=== PATIENT | female | born 1975 | race Caucasian/White ===

== ENCOUNTER 2018-12-20 20:26 | Emergency (ER) | payer BC ==
[2018-12-20 20:40] VITALS: BP 109/53
[2018-12-20] MEDS ORDERED: Diphtheria,Pertussis(Acell),Tetanus Vaccine 0.5 ML Syringe IM ONE (20:52)
--- NOTE | 2018-12-20 20:54 | EDM.PDOC ---
ED HPI GENERAL MEDICAL PROBLEM - General Chief Complaint: Bite:Animal, Insect Stated Complaint: DOG BITE L HAND Time Seen by Provider: 12/20/18 20:35 Source of Information: Reports: Patient History Limitations: Reports: No Limitations - History of Present Illness INITIAL COMMENTS - FREE TEXT/NARRATIVE: 43-year-old female presents for evaluation and treatment of a dog bite to the left wrist. Patient states she was trying to separate 2 dogs fighting, her sons and her own dog. She reports that she has a chihuahua and her son has a shitzu- Terrior. She was bitten by the ginu-terrior. She reports both dogs are up to date on their rabies vaccines. She is unsure what her tetanus status is. She is reporting some minor discomfort and states that she vomited 3 times after this occurred. At about 30 minutes prior to arrival in the ER. Patient initially had numbness and tingling into her hands but this has now resolved. Location: Reports: Lower Extremity, Left Treatments ASTROCHEMIST: Reports: Other (see below) Other Treatments ASTROCHEMIST: washed with soap and water Left Lower Arm Pain Score (Numeric/FACES): 1 - Related Data Allergies Allergy/AdvReac Type Severity Reaction Status Date / Time No Known Allergies Allergy Verified 04/12/16 19:45 Home Meds: Home Meds Amoxicillin/Clavulanate K [Augmentin 875-125 MG] 1 tab PO BID #20 tablet [Rx] Past Medical History - Past Health History Medical/Surgical History: Denies Medical/Surgical History Respiratory History: Reports: PE - Past Surgical History GI Surgical History: Reports: Cholecystectomy Social & Family History - Tobacco Use Smoking Status *Q: Never Smoker - Caffeine Use Caffeine Use: Reports: Coffee - Recreational Drug Use Recreational Drug Use: No ED ROS GENERAL - Review of Systems Review Of Systems: See Below GI/Abdominal: Reports: Vomiting (x3 ASTROCHEMIST) Skin: Reports: Wound (left ventral wrist) Neurological: Reports: Numbness (bilateral arms ASTROCHEMIST), Tingling (bilateral arms, ASTROCHEMIST now resolved) ED EXAM, ANIMAL BITE - Physical Exam Exam: See Below Exam Limited By: No Limitations General Appearance: Alert, WD/WN, No Apparent Distress Respiratory/Chest: No Respiratory Distress Cardiovascular: Normal Peripheral Pulses Peripheral Pulses: 3+: Radial (L) Extremities: Normal Inspection (no obvious deformities), Normal Capillary Refill Neurological: Alert, Oriented, Normal Cognition Psychiatric: Normal Affect, Normal Mood Skin Exam: Normal Color, Warm/Dry, Other (approximately 3cm superficial scratch and a 1cm superficial punture wound to the left ventral distal forearm) Course - Vital Signs Last Recorded V/S: Last Vital Signs Temp 96.2 F 12/20/18 20:37 Pulse 63 12/20/18 20:37 Resp 20 12/20/18 20:37 BP 109/53 L 12/20/18 20:37 Pulse Ox 98 12/20/18 20:37 - Orders/Labs/Meds Orders: Active Orders 24 hr Category Date Time Status Vaccines to be Administered [RC] PER UNIT ROUTINE Care 12/20/18 20:52 Active Meds: Medications Discontinued Medications Generic Name Dose Route Start Last Admin Trade Name Simran PRN Reason Stop Dose Admin Diphtheria/Tetanus/Acell Pertussis 0.5 ml 12/20/18 20:52 12/20/18 20:58 Adacel IM 12/20/18 20:53 0.5 ml .ONCE ONE Administration Departure - Departure Time of Disposition: 20:52 Disposition: Home, Self-Care 01 Condition: Good Clinical Impression: Dog bite - Discharge Information *PRESCRIPTION DRUG MONITORING PROGRAM REVIEWED*: No *COPY OF PRESCRIPTION DRUG MONITORING REPORT IN PATIENT GRACE: No Prescriptions: Amoxicillin/Clavulanate K [Augmentin 875-125 MG] 1 tab PO BID #20 tablet Instructions: Animal Bite, Adult, [id number] Referrals: PCP,None [Primary Care Provider] - Forms: ED Department Discharge Additional Instructions: Take the Augmentin as prescribed. 1 tab twice a day for 10 days. Take with food. Recommend yogurt or probiotics to reduce side effects of upset stomach, nausea and diarrhea. Wash the wound gentle soap and water twice a day. Monitor for signs of infection such as increased swelling, pus or redness. Presents to clinic or the ER should these develop. Follow-up with your primary care provider as needed. Masy-luw-kkmddnu Tylenol or Motrin as needed for pain. your tetanus was updated in the ER tara, this is good for the next 10 years. Please return to the ER for symptoms change or worsen. - My Orders Last 24 Hours: My Active Orders 12/20/18 20:52 Vaccines to be Administered [RC] PER UNIT ROUTINE - Assessment/Plan Last 24 Hours: My Active Orders 12/20/18 20:52 Vaccines to be Administered [RC] PER UNIT ROUTINE
== END 2018-12-20 21:05 | disposition home or self-care (01) ==
LOC: JD.ED 20:26
DX: S60.872A Other superficial bite of left wrist, initial encounter (principal); W54.0XXA Bitten by dog, initial encounter; Z23 Encounter for immunization
CPT/HCPCS: 90471; 90700; 99283

== ENCOUNTER 2020-01-11 07:02 | Emergency (ER) | payer BC ==
[2020-01-11 07:15] VITALS: PULSE 112
[2020-01-11] MEDS ORDERED: Dextrose 5%-0.9% NaCl 1,000 ML IV SCH (07:30)
--- NOTE | 2020-01-11 07:30 | EDM.PDOC ---
ED HPI GENERAL MEDICAL PROBLEM - General Chief Complaint: Headache Stated Complaint: HEADACHE AND DIZZY Time Seen by Provider: 01/11/20 07:29 Source of Information: Reports: Patient History Limitations: Reports: No Limitations - History of Present Illness INITIAL COMMENTS - FREE TEXT/NARRATIVE: 44-year-old female presents to the ED just generally not feeling right after taking medication for a bad migraine headache since she awoke this morning. Headache is much improved after taking ibuprofen tablets at home. She states she feels a little off in her balance I slightly dizzy. She does not feel safe enough to drive a motor vehicle. She feels her vision is okay. No nausea vomiting occurred. Only medication she takes is a stool softener and Prilosec daily. Recent falls or closed head injuries. It was primarily across both temporal aspects of the scalp and is now abating. She is down to a 1 out of 10. She feels [place] and dried. She feels some tingling and weakness of her left upper extremity. Intermittent visual blurriness which is transient and comes and goes. Onset: Today, Sudden Onset Date: 01/11/20 Onset Time: 06:00 (Awoke with a headache this morning.) Duration: Minutes:, Improving Location: Reports: Head (Bilateral temporal frontal headache) Quality: Reports: Ache, Pressure, Throbbing Severity: Moderate Improves with: Reports: Other (Seems to be better after taking ibuprofen tablets this morning.) Worsens with: Reports: None Context: Denies: Activity, Exercise, Lifting, Sick Contact, Trauma, Other Associated Symptoms: Reports: Headaches, Loss of Appetite, Malaise, Weakness. Denies: No Other Symptoms, Confusion, Chest Pain, Cough, cough w sputum, Diaphoresis, Fever/Chills, Nausea/Vomiting, Rash, Seizure, Shortness of Breath, Syncope Treatments J[employer]ER: Reports: NSAIDS Frontal Headache Pain Score (Numeric/FACES): 7 - Related Data Allergies Allergy/AdvReac Type Severity Reaction Status Date / Time No Known Allergies Allergy Verified 01/11/20 07:15 Home Meds: Home Meds Docusate Sodium [Stool Softener] 0 mg PO DAILY 01/11/20 [History] Omeprazole 20 mg PO DAILY 01/11/20 [History] Past Medical History - Past Health History Medical/Surgical History: Denies Medical/Surgical History HEENT History: Reports: Impaired Vision Other HEENT History: wears eyeglasses Respiratory History: Reports: PE Gastrointestinal History: Reports: GERD 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: - Infectious Disease History Infectious Disease History: Reports: Chicken Pox - Past Surgical History HEENT Surgical History: Reports: Adenoidectomy, Tonsillectomy GI Surgical History: Reports: Cholecystectomy Female Surgical History: Reports: Tubal Ligation Social & Family History - Tobacco Use Smoking Status *Q: Never Smoker Second Hand Smoke Exposure: Yes - Caffeine Use Caffeine Use: Reports: Coffee - Recreational Drug Use Recreational Drug Type: Reports: Marijuana/Hashish - Living Situation & Occupation Living situation: Reports: Occupation: Employed ED ROS GENERAL - Review of Systems Review Of Systems: See Below Constitutional: Reports: No Symptoms, Malaise, Weakness. Denies: Fever, Chills HEENT: Reports: Other (Intermittent blurred vision) Respiratory: Reports: No Symptoms ( for the last hour or so.) Cardiovascular: Reports: No Symptoms Endocrine: Reports: Other (Thirsty.) GI/Abdominal: Reports: No Symptoms : Reports: No Symptoms Musculoskeletal: Reports: Other (Some numbness tingling and) Skin: Reports: No Symptoms ( weakness feeling in her left upper extremity) Neurological: Reports: Dizziness, Headache, Numbness (Which is abating. Down to 1 out of 10), Tingling. Denies: Confusion, Paresthesia, Pre-Existing Deficit, Seizure ([place] left upper extremity.), Syncope, Tremors, Trouble Speaking, Difficulty Walking, Weakness, Change in Speech Psychiatric: Reports: No Symptoms, Anxiety (Mildly anxious.) Hematologic/Lymphatic: Reports: No Symptoms Immunologic: Reports: No Symptoms - Physical Exam Exam: See Below Exam Limited By: No Limitations General Appearance: Alert, WD/WN, No Apparent Distress, Other (Temperature is 37.0 with a heart rate of 112 respiratory 16 pulse ox 100% room air BP 132/70.) Eye Exam: Bilateral Eye: Normal Inspection, PERRL Throat/Mouth: Normal Inspection, Normal Lips, Normal Teeth, Normal Oropharynx, Other Head Exam: Atraumatic (Uvula is in the midline), Normocephalic Neck: Normal Inspection, Supple, Non-Tender, Full Range of Motion. No: Lymphadenopathy (L), Lymphadenopathy (R) Respiratory/Chest: No Respiratory Distress, Lungs Clear, Normal Breath Sounds, No Accessory Muscle Use, Chest Non-Tender Cardiovascular: Normal Peripheral Pulses, Regular Rate, Rhythm, No Edema, No Gallop, No Murmur, No Rub GI/Abdominal: Normal Bowel Sounds, Soft, Non-Tender, No Organomegaly, No Abnormal Bruit, No Mass, Pelvis Stable Neuro Exam (Abbreviated): Alert, Oriented, CN II-XII Intact, Normal Cognition, Normal Gait, Normal Reflexes, No Motor/Sensory Deficits, Other (No pronator drift. Saahtk-qq-fgxo assessment is normal. Rapid alternating movements are normal.) DTR: 2+: Achilles (R), Achilles (L), 3+: Bicep (R), Bicep (L), Patella (R), Patella (L) Extremities: Normal Inspection, Normal Range of Motion, Non-Tender, No Pedal Edema Psychiatric: Anxious Skin Exam: Warm, Dry (Mildly anxious.), Intact, Normal Color, No Rash Course - Vital Signs Last Recorded V/S: Last Vital Signs Temp 37.0 C 01/11/20 07:05 Pulse 112 H 01/11/20 07:05 Resp 16 01/11/20 07:05 BP 132/70 01/11/20 07:05 Pulse Ox 100 01/11/20 07:05 - Orders/Labs/Meds Orders: Active Orders 24 hr Category Date Time Status URINALYSIS W/MICROSCOPIC [UA W/MICROSCOPIC] [URIN] Stat Lab 01/11/20 07:25 Ordered Dextrose 5%-0.9% NaCl [Dextrose 5%-Normal Saline] 1,000 Med 01/11/20 07:30 Active ml IV ASDIRECTED Medication Orders Dextrose/Sodium Chloride (Dextrose 5%-Normal Saline) 1,000 mls @ 999 mls/hr IV ASDIRECTED MELANY Last Admin: 01/11/20 07:47 Dose: 999 mls/hr Documented by: [facility] Labs: Laboratory Tests 01/11/20 01/11/20 Range/Units 07:45 07:45 WBC 9.31 (3.98-10.04) K/mm3 RBC 4.16 (3.98-5.22) M/mm3 Hgb 12.6 (11.2-15.7) gm/dl Hct 39.7 (34.1-44.9) % MCV 95.4 H (79.4-94.8) fl MCH 30.3 (25.6-32.2) pg MCHC 31.7 L (32.2-35.5) g/dl RDW Std Deviation 43.1 (36.4-46.3) fL Plt Count 357 (182-369) K/mm3 MPV 10.4 (9.4-12.3) fl Neut % (Auto) 64.8 (34.0-71.1) % Lymph % (Auto) 23.8 (19.3-51.7) % [place] % (Auto) 7.3 (4.7-12.5) % Eos % (Auto) 2.3 (0.7-5.8) Baso % (Auto) 1.7 H (0.1-1.2) % Neut # (Auto) 6.03 (1.56-6.13) K/mm3 Lymph # (Auto) 2.22 (1.18-3.74) K/mm3 [place] # (Auto) 0.68 H (0.24-0.36) K/mm3 Eos # (Auto) 0.21 (0.04-0.36) K/mm3 Baso # (Auto) 0.16 H (0.01-0.08) K/mm3 Sodium 140 (136-145) mEq/L Potassium 4.1 (3.5-5.1) mEq/L Chloride 105 (98-107) mEq/L Carbon Dioxide 25 (21-32) mEq/L Anion Gap 14.1 (5-15) BUN 23 H (7-18) mg/dL Creatinine 1.1 H (0.55-1.02) mg/dL Est Cr Clr Drug Dosing 62.14 mL/min Estimated GFR (MDRD) 53 (>60) mL/min BUN/Creatinine Ratio 20.9 H (14-18) Glucose 121 H (74-106) mg/dL Calcium 8.7 (8.5-10.1) mg/dL Magnesium 2.2 (1.8-2.4) mg/dl Total Bilirubin 0.4 (0.2-1.0) mg/dL AST 20 (15-37) U/L ALT 27 (14-59) U/L Alkaline Phosphatase 55 (46-116) U/L Total Protein 6.9 (6.4-8.2) g/dl Albumin 3.5 (3.4-5.0) g/dl Globulin 3.4 gm/dL Albumin/Globulin Ratio 1.0 (1-2) Meds: Medications Generic Name Dose Route Start Last Admin Trade Name Simran PRN Reason Stop Dose Admin Dextrose/Sodium Chloride 1,000 mls @ 999 mls/hr 01/11/20 07:30 01/11/20 07:47 Dextrose 5%-Normal Saline IV 999 mls/hr ASDIRECTED MELANY Administration - Radiology Interpretation Free Text/Narrative:: 44-year-old female presents to the ED after awakening with a bad headache presumably migraine around 0530 hrs. this morning. Headache was bitemporal and frontal. She is prone to getting migraine headaches but has not had one for a lengthy period of time. She took ibuprofen this morning and it seemed to be relieving the headache. Headache is currently down to 1 out of 10. She just does not feel right however since the headache occurred feels like her vision is transiently getting blurred but comes back to normal some tingling numbness and weakness feeling in her left upper extremity. She would feel good enough to drive her via motor vehicle for example. Neuro exam is completely normal. Suspect residual effects of migraine. Plan D5 normal saline at open. She is feeling very thirsty. Routine labs will be performed to make sure she is not diabetic etc. She takes no medications that would be problematic. - Re-Assessments/Exams Free Text/Narrative Re-Assessment/Exam: 01/11/20 09:07 White count is normal at 9.31. Auto differential shows 65% neutrophils. Hemoglobin is 12.6 with hematocrit of 39.7. Platelet count is 357,000. Sodium 140 with a potassium of 4.1. Chloride 105 with a bicarb of 25 anion gap is 14.1. BUN is 23 with a creatinine of 1.1. GFR is 53. Glucose 121 calcium 8.7. Magnesium 2.2 liver function normal. Total protein 6.9 with an albumin fraction of 3.5 he did neuro exam. She had a little bit of drifting with Romberg sign mostly backwards but she never fell. She felt like she was listing a bit perhaps to the left side. She can walk fine and pivot normally. 01/11/20 09:11 since labs are normal and neuro exam is normal I find that most of her symptoms are likely anxiety related. Her is here and I am going to discharge her to home. 01/11/20 09:11 She will get something to eat and then rest for today. Note given to excuse her from the workplace today. Departure - Departure Time of Disposition: 09:12 Disposition: Home, Self-Care 01 Condition: Fair Clinical Impression: Migraine headache Qualifiers: Migraine type: without aura Status migrainosus presence: without status migrainosus Intractability: not intractable Qualified Code(s): G43.009 - Migraine without aura, not intractable, without status migrainosus - Discharge Information *PRESCRIPTION DRUG MONITORING PROGRAM REVIEWED*: Not Applicable *COPY OF PRESCRIPTION DRUG MONITORING REPORT IN PATIENT GRACE: Not Applicable Referrals: Gail Washburn MD [Primary Care Provider] - Forms: ED Department Discharge, ED Return to Work/School Form Additional Instructions: Evaluation in the emergency room this morning after experiencing a migraine headache which you awoke with around 0600 hrs. Improved with oral ibuprofen. Neurological examination proved to be completely normal including ability to walk etc. Intermittent unspecific symptoms of numbness tingling in left upper extremity and pain in jaw. None of these symptoms necessarily add up to any significant pathology. Suggest home to rest with something to eat. Work today. Return to the ED if any further problems occur. Believe most of your signs and symptoms are residual effect of the migraine headache. Sepsis Event Note (ED) - Evaluation Sepsis Screening Result: No Definite Risk - Focused Exam Vital Signs: Vital Signs Temp Pulse Resp BP Pulse Ox 01/11/20 07:05 37.0 C 112 H 16 132/70 100 - My Orders Last 24 Hours: My Active Orders 01/11/20 07:25 URINALYSIS W/MICROSCOPIC [UA W/MICROSCOPIC] [URIN] Stat 01/11/20 07:30 Dextrose 5%-0.9% NaCl [Dextrose 5%-Normal Saline] 1,000 ml IV ASDIRECTED - Assessment/Plan Last 24 Hours: My Active Orders 01/11/20 07:25 URINALYSIS W/MICROSCOPIC [UA W/MICROSCOPIC] [URIN] Stat 01/11/20 07:30 Dextrose 5%-0.9% NaCl [Dextrose 5%-Normal Saline] 1,000 ml IV ASDIRECTED
[2020-01-11 09:31] VITALS: BP 100/55
== END 2020-01-11 09:30 | disposition home or self-care (01) ==
LOC: JD.ED 07:02
DX: G43.009 Migraine without aura, not intractable, without status migrainosus (principal); R42 Dizziness and giddiness; K21.9 Gastro-esophageal reflux disease without esophagitis; Z79.899 Other long term (current) drug therapy; Z77.22 Contact with and (suspected) exposure to environmental tobacco smoke (acute) (chronic)
CPT/HCPCS: 36415; 80053; 81001; 83735; 85025; 96360; 99283; J7042

== ENCOUNTER 2020-02-14 21:26 | Emergency (ER) | payer BC ==
[2020-02-14 21:39] VITALS: BP 122/50; PULSE 104
--- NOTE | 2020-02-14 22:01 | EDM.PDOC ---
ED HPI GENERAL MEDICAL PROBLEM - General Chief Complaint: General Stated Complaint: ANKLES SWOLLEN Time Seen by Provider: 02/14/20 21:45 Source of Information: Reports: Patient History Limitations: Reports: No Limitations - History of Present Illness INITIAL COMMENTS - FREE TEXT/NARRATIVE: Mrs. Morin is a very pleasant 44-year-old woman with a past medical history significant for a pulmonary embolus in 2008, thought due to being on control pills at that time, and treated with anticoagulants. Lower extremity Dopplers at that time were negative for a DVT. The patient is no longer on control pills or anticoagulants. She now presents the ED after noticing bilateral ankle edema around 14:00 this afternoon, after driving from [place], [place] today. No leg pain. No recent chest pain or palpitations. No recent shortness of breath. The patient did not take any zawv-ijd-pvxvllg or home remedies prior to coming to the ED. Here in the ED, the patient is found to be slightly tachycardic at 104 bpm, otherwise, she is hemodynamically stable, afebrile, saturating 98% on room air. Other than today's bilateral ankle edema, the patient denies having a recent fever, chills, sore throat, ear pain, nasal or sinus congestion, cough, dyspnea, chest pain, palpitations, nausea, vomiting, constipation, diarrhea, abdominal pain, urinary symptoms, recent weight gain or weight loss, recent bloody bowel movements or black bowel movements, recent joint aches, headaches, or rashes. The patient does not have a PCP. 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 - Related Data Allergies Allergy/AdvReac Type Severity Reaction Status Date / Time No Known Allergies Allergy Verified 02/14/20 21:39 Home Meds: Home Meds Doxylamine Succinate [Unisom] 50 mg PO BEDTIME 02/14/20 [History] Past Medical History HEENT History: Reports: Impaired Vision (wears eyeglasses) Respiratory History: Reports: PE (2008) Gastrointestinal History: Reports: GERD - Infectious Disease History Infectious Disease History: Reports: Chicken Pox - Past Surgical History HEENT Surgical History: Reports: Adenoidectomy, Oral Surgery (wisdom teeth extraction), Tonsillectomy GI Surgical History: Reports: Cholecystectomy (2005) Female Surgical History: Reports: Tubal Ligation Social & Family History - Family History Family Medical History: Noncontributory - Tobacco Use Smoking Status *Q: Never Smoker Second Hand Smoke Exposure: Yes - Caffeine Use Caffeine Use: Reports: Coffee - Alcohol Use Alcohol Use History: Yes Alcohol Use Frequency: Socially - Recreational Drug Use Recreational Drug Use: Yes Drug Use in Last 12 Months: Yes Recreational Drug Type: Reports: Marijuana/Hashish (smokes about once a week) - Living Situation & Occupation Living situation: Reports: , with Spouse 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 ED EXAM, GENERAL - Physical Exam Exam: See Below Exam Limited By: No Limitations General Appearance: Alert, WD/WN, No Apparent Distress Extremities: Other (1-2+ bilateral pretibial pitting edema. Neurovascular status of both lower extremities is intact.) Course - Vital Signs Last Recorded V/S: Last Vital Signs Temp 37.6 C 02/14/20 21:34 Pulse 104 H 02/14/20 21:34 Resp 18 02/14/20 21:34 BP 122/50 L 02/14/20 21:34 Pulse Ox 98 02/14/20 21:34 - Orders/Labs/Meds Orders: Active Orders 24 hr Category Date Time Status Venous Doppler Lwr Ext Bi [US] Stat Exams 02/14/20 21:51 Taken - Re-Assessments/Exams Free Text/Narrative Re-Assessment/Exam: 02/14/20 21:59 As above, the patient noticed bilateral lower extremity edema around 14:00 this afternoon, after driving from [place], [place] today. No other symptoms, however, the patient is concerned due to a history of a pulmonary embolus in 2008. I have therefore ordered bilateral lower extremity Dopplers to evaluate for a DVT. 02/14/20 23:19 Doppler ultrasound of the bilateral lower extremities is read by the read as "Negative. No deep venous thrombosis is seen." 02/14/20 23:21 Doppler results discussed with the patient. Going forward, I am recommending that she elevate her lower extremities as much as possible when she is not ambulating, that she consider purchasing compression stockings which she can apply in the morning and remove at bedtime, and to minimize the amount of salt in her diet. Departure - Departure Time of Disposition: 23:22 Disposition: Home, Self-Care 01 Condition: Good Clinical Impression: Bilateral lower extremity edema - Discharge Information *PRESCRIPTION DRUG MONITORING PROGRAM REVIEWED*: Not Applicable *COPY OF PRESCRIPTION DRUG MONITORING REPORT IN PATIENT GRACE: Not Applicable Instructions: Peripheral Edema Referrals: Gail Washburn MD [Primary Care Provider] - Forms: ED Department Discharge Additional Instructions: You were seen in the emergency room for edema of both lower extremities after driving from [place], [place] today. Work-up in the ER included Doppler ultrasounds of both of your lower extremities, which returned negative for deep vein blood clots. Based on your history, physical exam, and Doppler ultrasound results, the cause of your lower extremity edema is due to dependency. Going forward, we recommend that you elevate your lower extremities as much as possible when you are not walking around. If your edema persist, we recommend that you purchase [id number] knee-high or thigh-high compression stockings. You would put them on in the morning, and remove them at bedtime. Additionally, we recommend that you minimize the amount of salt in your diet. If any other problems, please do not hesitate to return to the ER. Sepsis Event Note (ED) - Evaluation Sepsis Screening Result: No Definite Risk - Focused Exam Vital Signs: Vital Signs Temp Pulse Resp BP Pulse Ox 02/14/20 21:34 37.6 C 104 H 18 122/50 L 98 - My Orders Last 24 Hours: My Active Orders 02/14/20 21:51 Venous Doppler Lwr Ext Bi [US] Stat - Assessment/Plan Last 24 Hours: My Active Orders 02/14/20 21:51 Venous Doppler Lwr Ext Bi [US] Stat
--- NOTE | 2020-02-15 06:43 | US ---
Bilateral lower extremity deep venous ultrasound: Duplex and color Doppler evaluation was obtained of the right and left common femoral, proximal greater saphenous, superficial femoral, popliteal, posterior tibial and peroneal veins. Comparison: No prior venous imaging is available. Findings: Normal phasic flow, augmentation and compression is seen. Impression: 1. No evidence of deep venous thrombosis within the right or left lower extremities. Diagnostic code #1 Agree with preliminary report issued by [facility] ([facility] preliminary report dictated on 02/15/20, 12:07 AM Central Daylight Time) Study was dictated in MDT
== END 2020-02-14 22:39 | disposition home or self-care (01) ==
LOC: JD.ED 21:26
DX: R60.0 Localized edema (principal); Z77.22 Contact with and (suspected) exposure to environmental tobacco smoke (acute) (chronic); Z86.711 Personal history of pulmonary embolism; Z79.01 Long term (current) use of anticoagulants
CPT/HCPCS: 93970; 93970-26; 99282; 99284-25

== ENCOUNTER 2024-05-29 19:31 | Emergency (ER) | payer BC ==
[2024-05-29] MEDS: HYDROmorphone 1 MG/ML Syringe IVPUSH ONE ×2 (21:25→22:50)
[2024-05-30] MEDS: HYDROmorphone 0.5 MG/0.5 ML Syringe IVPUSH ONE (00:07)
[2024-05-30 00:19] VITALS: BP 118/73; PULSE 74
== END 2024-05-30 00:18 | disposition home or self-care (01) ==
LOC: JD.ED 19:31
DX: S82.52XA Displaced fracture of medial malleolus of left tibia, initial encounter for closed fracture (principal); Z90.49 Acquired absence of other specified parts of digestive tract; Z79.899 Other long term (current) drug therapy; W01.0XXA Fall on same level from slipping, tripping and stumbling without subsequent striking against object, initial encounter
CPT/HCPCS: 29515; 73590-26-LT; 73590-LT; 96374; 96376; 99284; 99284-25; J1171

== ENCOUNTER 2024-05-30 10:23 | Emergency (ER) | payer BC ==
[2024-05-30] MEDS: Acetaminophen/HYDROcodone 325-5 MG Tab PO ONE (10:56)
[2024-05-30 11:17] VITALS: BP 99/77; PULSE 75
== END 2024-05-30 11:17 | disposition home or self-care (01) ==
LOC: JD.ED 10:23
DX: S93.601A Unspecified sprain of right foot, initial encounter (principal); Z90.49 Acquired absence of other specified parts of digestive tract; Z79.899 Other long term (current) drug therapy; W01.198A Fall on same level from slipping, tripping and stumbling with subsequent striking against other object, initial encounter
CPT/HCPCS: 73630-26-RT; 73630-RT; 99283; A9270-GY

== ENCOUNTER 2024-06-04 10:46 | Day surgery (SDC) | payer BC ==
[~2024-06-04 10:46] MED LIST: Sodium Chloride 0.9% 10 ML Syringe FLUSH PRN
[2024-06-04] MEDS: Lactated Ringers 1,000 ML IV SCH (11:20)
[2024-06-04] MEDS ORDERED: Midazolam 1 MG/ML 2 ML SDV ONE (11:25)
[2024-06-04] MEDS ORDERED: Propofol 200 MG/20 ML SDV ONE ×2 (11:25→13:22)
[2024-06-04] MEDS ORDERED: Ketamine 200 MG/20 ML MDV ONE (11:25)
[2024-06-04] MEDS ORDERED: fentaNYL 250 MCG/5 ML SDV ONE (11:25)
[2024-06-04] MEDS ORDERED: Dexamethasone 4 MG/ML 5 ML MDV ONE (11:29)
[2024-06-04] MEDS ORDERED: Rocuronium 50 MG/5 ML Vial ONE (11:29)
[2024-06-04] MEDS ORDERED: Lidocaine 1% 5 ML VIAL ONE (11:29)
[2024-06-04] MEDS ORDERED: Ondansetron 4 MG/2 ML SDV ONE (11:29)
[2024-06-04] MEDS ORDERED: Ropivacaine 0.5% 5 MG/ML 30 ML SDV ONE (11:40)
[2024-06-04] MEDS ORDERED: dexmedeTOMIDine HCl 200 MCG/2 ML SDV ONE (11:40)
[2024-06-04] MEDS ORDERED: ceFAZolin 2 GM Vial ONE (12:35)
[2024-06-04] MEDS ORDERED: HYDROmorphone 0.5 MG/0.5 ML Syringe ONE ×3 (12:48→13:41)
[2024-06-04] MEDS ORDERED: HYDROmorphone 0.5 MG/0.5 ML Syringe IVPUSH PRN (13:04)
[2024-06-04] MEDS ORDERED: fentaNYL 100 MCG/2 ML SDV IVPUSH PRN (13:04)
[2024-06-04] MEDS ORDERED: oxyCODONE 5 MG Tab PO PRN (15:17)
[2024-06-04] MEDS: Ondansetron 4 MG/2 ML SDV IVPUSH PRN (17:20)
[2024-06-04] MEDS: droPERidol 5 MG/2 ML SDV IVPUSH ONE (18:29)
[2024-06-04] MEDS: Scopalamine 1mg/3day Transdermal Patch TOP ONE (18:30)
[2024-06-04] MEDS: Sodium Chloride 0.9% 10 ML Syringe FLUSH SCH (20:15)
[2024-06-04] MEDS ORDERED: Acetaminophen 325 MG Tab PO PRN (20:46)
[2024-06-04] MEDS: oxyCODONE 5 MG Tab PO PRN (21:02)
[2024-06-05 05:00] VITALS: BP 129/61; PULSE 77
[2024-06-07] MEDS ORDERED: Remove Patch *SCOPOLAMINE TRDERM ONE (18:30)
== END 2024-06-05 06:35 | disposition home or self-care (01) ==
LOC: JD.SDS 10:46 → JD.MS 19:09 → UNDOADMIN 19:09 → JD.MS 19:09 → UNDOADMIN 19:10 → JD.SDS 06-05 06:35
PROVIDERS: ATTEND Orthopaedic Surgery
DX: S82.842A Displaced bimalleolar fracture of left lower leg, initial encounter for closed fracture (principal); Z79.01 Long term (current) use of anticoagulants; Z79.899 Other long term (current) drug therapy
CPT/HCPCS: 27814; 64450; 76000; A9270; C1713; C1769; C1776; J0690; J1100; J1171; J1790; J2250; J2405; J2704; J2795; J3010; J3490; J7120

== ENCOUNTER 2024-06-08 16:59 | Emergency (ER) | payer BC ==
[2024-06-08 18:02] LABS: BASOPHILS ABSOLUTE AUTO 0.1 K/mm3 (0.0-0.2); BASOPHILS PERCENT AUTO 0.6 % (0.0-1.0); EOSINOPHILS ABSOLUTE AUTO 0.1 K/mm3 (0.0-0.4); EOSINOPHILS PERCENT AUTO 0.7 % (0.0-6.0); HEMATOCRIT 43.2 % (37.0-47.0); HEMOGLOBIN 14.6 gm/dl (12.0-16.0); IMMATURE GRAN PERCENT AUTO 0.5 % (0.0-0.4); LYMPHOCYTES ABSOLUTE AUTO 2.4 K/mm3 (1.0-4.8); LYMPHOCYTES PERCENT AUTO 12.9 % (24.0-44.0); MEAN CORPUSCULAR HEMOGLOBIN 29.4 pg (28.0-32.0); MEAN CORPUSCULAR HGB CONC 33.8 g/dl (32.0-36.0); MEAN CORPUSCULAR VOLUME 87.1 fl (83.0-99.0); MEAN PLATELET VOLUME 9.4 fl (9.4-12.3); MONOCYTES ABSOLUTE AUTO 1.1 K/mm3 (0.0-0.8); MONOCYTES PERCENT AUTO 5.6 % (0.0-8.0); NEUTROPHILS PERCENT AUTO 79.7 % (41.0-71.0); PLATELET COUNT,PLT 519 K/mm3 (150-400); RED BLOOD CELL COUNT 4.96 M/mm3 (4.10-5.30); WHITE BLOOD CELL COUNT,WBC 18.86 K/mm3 (3.9-11.3)
[2024-06-08 18:25] LABS: A/G RATIO 0.8 (1-2); ALBUMIN 3.4 g/dl (3.4-5.0); ANION GAP 15.6 (5-15); BILIRUBIN TOTAL 0.4 mg/dL (0.2-1.0); BUN/CREATININE RATIO 22.2 (14-18); CALCIUM 9.3 mg/dL (8.5-10.1); CREATININE 0.9 mg/dL (0.55-1.02); EST CRCL DRUG DOSING (CG) 72.72 mL/min; MAGNESIUM 2.1 mg/dL (1.8-2.4); POTASSIUM,K 3.6 mEq/L (3.5-5.1); PROTEIN TOTAL,TP 7.7 g/dl (6.4-8.2)
[2024-06-08 19:36] VITALS: BP 121/87; PULSE 85
== END 2024-06-08 19:07 | disposition home or self-care (01) ==
LOC: JD.ED 16:59
DX: K59.00 Constipation, unspecified (principal); R29.0 Tetany; F41.9 Anxiety disorder, unspecified; K21.9 Gastro-esophageal reflux disease without esophagitis; Z90.49 Acquired absence of other specified parts of digestive tract; Z79.01 Long term (current) use of anticoagulants; Z79.899 Other long term (current) drug therapy
CPT/HCPCS: 36415; 80053; 83735; 85025; 99284

== ENCOUNTER 2024-07-21 15:47 | Emergency (ER) | payer BC ==
[2024-07-21 17:33] LABS: BASOPHILS ABSOLUTE AUTO 0.1 K/mm3 (0.0-0.2); BASOPHILS PERCENT AUTO 0.6 % (0.0-1.0); EOSINOPHILS ABSOLUTE AUTO 0.1 K/mm3 (0.0-0.4); EOSINOPHILS PERCENT AUTO 0.3 % (0.0-6.0); HEMATOCRIT 38.6 % (37.0-47.0); HEMOGLOBIN 12.8 gm/dl (12.0-16.0); IMMATURE GRAN ABSOLUTE AUTO 0.06 K/mm3 (0.00-0.05); IMMATURE GRAN PERCENT AUTO 0.4 % (0.0-0.4); LYMPHOCYTES ABSOLUTE AUTO 1.6 K/mm3 (1.0-4.8); LYMPHOCYTES PERCENT AUTO 10.2 % (24.0-44.0); MEAN CORPUSCULAR HEMOGLOBIN 29.6 pg (28.0-32.0); MEAN CORPUSCULAR HGB CONC 33.2 g/dl (32.0-36.0); MEAN CORPUSCULAR VOLUME 89.1 fl (83.0-99.0); MONOCYTES ABSOLUTE AUTO 0.9 K/mm3 (0.0-0.8); MONOCYTES PERCENT AUTO 5.8 % (0.0-8.0); NEUTROPHILS ABSOLUTE AUTO 12.8 K/mm3 (1.8-7.7); NEUTROPHILS PERCENT AUTO 82.7 % (41.0-71.0); PLATELET COUNT,PLT 331 K/mm3 (150-400); RED BLOOD CELL COUNT 4.33 M/mm3 (4.10-5.30); WHITE BLOOD CELL COUNT,WBC 15.52 K/mm3 (3.9-11.3)
[2024-07-21] MEDS: LORazepam 2 MG/ML SDV IVPUSH ONE (17:33)
[2024-07-21] MEDS: Aspirin 81 MG Tab.Chew PO ONE (17:33)
[2024-07-21 17:37] VITALS: PULSE 107
[2024-07-21 17:53] LABS: ALBUMIN 3.6 g/dl (3.4-5.0); ANION GAP 11.5 (5-15); BILIRUBIN TOTAL 0.3 mg/dL (0.2-1.0); BUN/CREATININE RATIO 25.6 (14-18); CALCIUM 9.2 mg/dL (8.5-10.1); CREATININE 0.9 mg/dL (0.55-1.02); EST CRCL DRUG DOSING (CG) 72.72 mL/min; MAGNESIUM 1.7 mg/dL (1.8-2.4); POTASSIUM,K 3.5 mEq/L (3.5-5.1); PROTEIN TOTAL,TP 7.1 g/dl (6.4-8.2)
[2024-07-21] MEDS ORDERED: Sodium Chloride 0.9% 100 ML IV SCH (18:00)
[2024-07-21] MEDS: Iopamidol 755 Mg/ML 100 ML Bottle IVPUSH ONE (18:09)
[2024-07-21] MEDS: Magnesium Oxide 400 MG Tab PO ONE (19:31)
[2024-07-21 19:58] VITALS: BP 99/61
== END 2024-07-21 19:40 | disposition home or self-care (01) ==
LOC: JD.ED 15:47
DX: F41.9 Anxiety disorder, unspecified (principal); K21.9 Gastro-esophageal reflux disease without esophagitis; Z79.899 Other long term (current) drug therapy; Z79.01 Long term (current) use of anticoagulants
CPT/HCPCS: 36415; 71045; 71275; 80053; 83735; 84484; 85025; 85379; 93005; 96374; 99285; A9270; J2060; Q9967